=== PATIENT | female | born 2000 | race Caucasian/White ===

== ENCOUNTER → 2019-07-28 | Outpatient (CLI) | payer OTHER ==
[2019-07-28 14:54] LABS: EOS # 0.4 (0.04-0.40); EOS % 4.5 % (1.0-5.0); HEMATOCRIT 41.8 % (37.0-47.0); HEMOGLOBIN 13.6 g/dL (12.5-16.0); LYMPH# 2.7 (1.50-4.00); MEAN CELL VOLUME 76 fl (78-100); MEAN CORPUSCULAR HEMOGLOBIN 25 pg (27-31); MEAN CORPUSCULAR HGB CONC 33 g/dL (33-37); MEAN PLATELET VOLUME 9.5 fl (7.4-10.4); MONO # 0.6 (0.20-0.80); NEU # 4.9 (1.40-6.50); PLATELET COUNT 361 K/mm3 (130-400); RED BLOOD COUNT 5.49 M/mm3 (4.10-5.30); RED CELL DISTRIBUTION WIDTH 15.2 % (11.5-14.5); WHITE BLOOD COUNT 8.6 K/mm3 (4.8-10.8)
[2019-07-28 14:58] LABS: POTASSIUM 3.9 mmol/L (3.5-5.1); SODIUM 141 mmol/L (136-145)
[2019-07-28 14:59] LABS: ALBUMIN 4.7 g/dL (3.5-5.0)
[2019-07-28 15:00] LABS: CALCIUM 9.8 mg/dL (8.3-10.5)
[2019-07-28 15:01] LABS: GLUCOSE 87 mg/dL (65-105); TOTAL PROTEIN 8.4 g/dL (6.4-8.3)
[2019-07-28 15:02] LABS: CARBON DIOXIDE 23 mmol/L (22-29)
[2019-07-28 15:03] LABS: TOTAL BILIRUBIN 0.3 mg/dL (0.2-1.2)
[2019-07-28 15:06] LABS: AST-SGOT 20 U/L (5-34)
[2019-07-28 15:08] LABS: ALT/SGPT 28 U/L (0-55)
== END ==
LOC: LAB 14:15
PROVIDERS: Family Medicine
DX: N91.1 Secondary amenorrhea (principal); D64.9 Anemia, unspecified; F41.9 Anxiety disorder, unspecified; E78.5 Hyperlipidemia, unspecified